=== PATIENT | female | born 1980 | race Caucasian/White ===

== ENCOUNTER 2022-05-20 15:47 | Emergency (ER) | payer MEDICAID, SELFPAY ==
[2022-05-20 15:56] VITALS: BP 167/81; PULSE 59; RESP 18; TEMP 36.7; O2SAT 96; BMI 31.1
--- NOTE | 2022-05-20 16:05 | ED_ITS ---
HPI - General Adult General Chief complaint: General Medical Stated complaint: throat and head pain Time Seen by Provider: 05/20/22 16:03 Source: patient Mode of arrival: ambulatory Limitations: no limitations History of Present Illness HPI narrative: 41 yo female presents to the ER for evaluation of sore throat x1 month. She reports she was recently diagnosed the dental abscess and has been on antibiotics and her tooth pain has been improving. She reports she has a sore in the back of her throat that is tender to touch and hurts to swallow. She has been able to eat and drink normally. She also reports headache when she coughs and sneezes. No headache any other times. She has some generalized body aches as well. No fevers. MD complaint: Sore throat and body aches Onset (ago): day(s) Location: head and mouth Radiation: non-radiation Severity: moderate Quality: aching Pain Consistency: intermittent Relieving factors: none Exacerbating factors: eating Associated symptoms: malaise Treatments prior to arrival: none Related Data Previous Rx's Medication Instructions Recorded ibuprofen 600 mg tablet 600 mg PO Q8H PRN pain #14 tabs 05/20/22 valacyclovir 1 gram tablet 2,000 mg PO BID 1 day #4 tabs 05/20/22 Allergies Allergy/AdvReac Type Severity Reaction Status Date / Time No Known Allergies Allergy Verified 05/20/22 16:05 Review of Systems Review of Systems: Constitutional: No Fever, No Chills ENT/Mouth: +sore throat, No Rhinorrhea, No Swallowing Difficulty, +Dental pain Cardiovascular: No Chest Pain, No SOB Respiratory: + Cough, No Sputum Gastrointestinal: No Nausea, No Vomiting, No Diarrhea, No abdominal Pain Musculoskeletal: No joint pain, No Myalgias Skin: No Skin Lesions, No rash Neuro: No Weakness, No Numbness, No Dizziness, + Headache Heme/Lymph: No Bruising, No Lymphadenopathy PMFSH Social History Social History Advance Directives: No Advance Directives Information Provided: No Physical Exam ED Vital Signs: Vital Signs - 24 hr 05/20/22 15:56 Temperature 98.0 F Pulse Rate 59 Respiratory Rate 18 Blood Pressure 167/81 H Pulse Oximetry 96 Oxygen Delivery Method Room Air BMI result Body Mass Index 31.1 Appearance: Alert. Oriented X3. No acute distress. HEENT: normal external inspection. Oropharynx with moist mucous membranes, no tonsillar swelling or exudate. Posterior oropharynx with a single circular cold sore on an erythematous base no pustule. Uvula midline. Tympanic membranes are normal bilaterally. CVS: Normal heart rate and rhythm. Pulses normal. Respiratory: No respiratory distress. Lungs clear throughout Skin: Skin warm and dry. Normal skin color. Normal skin turgor. No rashes. Extremities: Normal inspection, no range of motion. Neuro: Oriented X 3. Grossly normal, nonfocal. Steady gait. Medications Administered Discontinued Medications Generic Name Dose Route Start Last Admin Trade Name Freq PRN Reason Stop Dose Admin Ibuprofen 600 mg 05/20/22 16:12 05/20/22 16:21 Ibuprofen 600 Mg Tablet PO 05/20/22 16:13 600 mg ONCE ONE Administration Lidocaine HCl 15 ml 05/20/22 16:12 05/20/22 16:21 Lidocaine Hcl Viscous 2 % 15 Ml Solution MUCOUS MEM 05/20/22 16:13 15 ml ONCE ONE Administration Medical Decision Making Lab Data Labs: Lab Results 05/20/22 05/20/22 05/20/22 Range/Units 16:01 16:37 16:37 COVID-19 (TRISHA) Negative (Negative) COVID-19 Clin Com See Note Influenza Type A ([facility]) Negative (Negative) Influenza Type B ([facility]) Negative (Negative) Influenza A & B Note See Note S. pyogenes GrpA RUSS Negative (Negative) Discharge Plan Discharge Clinical Impression: Viral sore throat Patient Disposition: Home, Self-Care Instructions: Pharyngitis (ED) Additional Instructions: You are negative for Strep throat, COVID and Flu. Take the prescribed antiviral medication as directed, only 2 doses are required. Use over the counter Chloraseptic spray or Cepacol lozenges as needed for sore throat. Use warm salt water gargles 3 times per day. Follow up with your PCP as needed. If you develop new or worsening symptoms call 911 or come back to the ER for further evaluation. Eres negativo para la faringitis estreptoc?cica. [place] el medicamento antiviral recetado seg?n las indicaciones, solo se requieren 2 dosis. Use el aerosol Chloraseptic de venta evelia o las pastillas Cepacol seg?n sea necesario para el dolor de garganta. Miguel g?rgaras con agua salada tibia 3 veces al d?a. Miguel un seguimiento con bauman PCP seg?n sea necesario. Si desarrolla s?ntomas nuevos o que empeoran, llame al 911 o regrese a la carina de emergencias para spenser evaluaci?n adicional. Prescriptions: New valacyclovir 1 gram tablet 2,000 mg PO BID 1 Days Qty: 4 0RF ibuprofen 600 mg tablet 600 mg PO Q8H PRN (Reason: pain) Qty: 14 0RF
[2022-05-20 16:16] LABS: Strep A Nucleic Acid Negative (Negative)
[2022-05-20] MEDS: Lidocaine HCl Viscous 2 % 15 ML SOLUTION MUCOUS MEM (16:21)
[2022-05-20] MEDS: Ibuprofen 600 MG TABLET PO (16:21)
[2022-05-20 16:58] LABS: COVID-19 Test Negative (Negative); IDNOW Serial# 16C4AD1C; IDNOW Serial# BCCEAD1C; Influenza A Negative (Negative); Influenza B2 Negative (Negative)
== END 2022-05-20 17:08 | disposition home or self-care (01) ==
PROVIDERS: Physician Assistant; Emergency Provider Internal Medicine
DX: J02.8 Acute pharyngitis due to other specified organisms (principal); R07.0 Pain in throat; M79.10 Myalgia, unspecified site; Z20.822 Contact with and (suspected) exposure to COVID-19; Z79.899 Other long term (current) drug therapy
CPT/HCPCS: 36415; 87502; 87635; 87651; 99283